=== PATIENT | male | born 1950 | race Two or more races ===

== ENCOUNTER 2023-09-19 09:18 | Outpatient (CLI) | payer OTHER | END 2023-09-19 09:21 | disposition home or self-care (01) | LOC: LAB 09:18 | PROVIDERS: ATTEND Urology | DX: R97.20 Elevated prostate specific antigen [PSA] (principal) ==

== ENCOUNTER 2023-09-29 07:08 | Outpatient (CLI) | payer OTHER | END 2023-09-29 07:17 | disposition home or self-care (01) | LOC: SONOGRAMA 07:08 | PROVIDERS: ATTEND Urology | DX: C61 Malignant neoplasm of prostate (principal); N40.1 Benign prostatic hyperplasia with lower urinary tract symptoms; R97.20 Elevated prostate specific antigen [PSA] ==